=== PATIENT | female | born 1950 | race African-American/Black ===

== ENCOUNTER → 2019-01-09 12:32 | Outpatient (CLI) | payer MEDICARE ==
[2012-02-09 10:07] VITALS: BMI 35.8
== END | disposition home or self-care (01) ==
LOC: D.RT 12-26 10:00 → D.RAD 12-26 10:45 → D.RT 12:32
DX: J44.9 Chronic obstructive pulmonary disease, unspecified (principal)

== ENCOUNTER → 2019-04-20 15:06 | Outpatient (CLI) | payer MEDICARE | END | disposition home or self-care (01) | LOC: D.RT 15:06 | DX: R06.09 Other forms of dyspnea (principal); J98.4 Other disorders of lung ==

== ENCOUNTER → 2019-05-12 10:59 | Outpatient (CLI) | payer MEDICARE ==
[2012-02-09 10:07] VITALS: BMI 35.8
== END | disposition home or self-care (01) ==
LOC: D.MRI 05-05 10:30
PROVIDERS: ATTEND Anesthesiology
DX: M54.6 Pain in thoracic spine (principal); G89.4 Chronic pain syndrome

== ENCOUNTER → 2019-07-28 11:20 | Outpatient (CLI) | payer MEDICARE ==
[2012-02-09 10:07] VITALS: BMI 35.8
== END | disposition home or self-care (01) ==
LOC: D.RT 07-25 15:00
PROVIDERS: ATTEND Internal Medicine Pulmonary Disease
DX: R06.09 Other forms of dyspnea (principal)

== ENCOUNTER → 2019-12-06 12:15 | Outpatient (CLI) | payer MEDICARE ==
[2012-02-09 10:07] VITALS: BMI 35.8
[2019-12-06 12:40] LABS: BASOPHILS 0.2 % (0-2); EOSINOPHILS 2.4 % (0-7); HEMATOCRIT 36.6 % (36.0-48.0); HEMOGLOBIN 11.4 g/dL (12-16); IMMATURE GRANULOCYTES 0.9 % (0-5); LYMPHOCYTES 21.5 % (15-50); MCH 25.9 pg (26.0-34.0); MCHC 31.1 g/dL (31.0-37.0); MCV 83.2 fL (80.0-100.0); MEAN PLATELET VOLUME 9.3 fL (7.4-10.4); MONOCYTES 8.2 % (2-11); NEUTROPHILS 66.8 % (40-80); PLATELET COUNT 342 10x3/uL (130-400); RDW 16.7 % (11.5-14.5); WBC 12.7 10x3/uL (4.8-10.8)
== END | disposition home or self-care (01) ==
LOC: D.LAB 12:15
PROVIDERS: ATTEND Internal Medicine Pulmonary Disease
DX: J45.909 Unspecified asthma, uncomplicated (principal)

== ENCOUNTER → 2020-01-23 11:40 | Outpatient (CLI) | payer MEDICARE ==
[2012-02-09 10:07] VITALS: BMI 35.8
== END | disposition home or self-care (01) ==
LOC: D.CT 01-17 10:00
PROVIDERS: ATTEND Internal Medicine Pulmonary Disease
DX: R93.89 Abnormal findings on diagnostic imaging of other specified body structures (principal)